=== PATIENT | female | born 1945 | race Caucasian/White ===

== ENCOUNTER → 2023-07-21 19:35 | Outpatient (REF) | payer MEDICARE, OTHER, SELFPAY | LOC: CLAB 19:35 | PROVIDERS: ATTENDING PHYSICIAN Obstetrics & Gynecology | DX: L90.0 Lichen sclerosus et atrophicus (principal) | CPT/HCPCS: 88305; 88312; 88341; 88342 ==

== ENCOUNTER → 2024-04-24 15:03 | Outpatient (REF) | payer MEDICARE, OTHER, SELFPAY | LOC: RAD 15:03 | PROVIDERS: ATTENDING PHYSICIAN Obstetrics & Gynecology; FAMILY PHYSICIAN Family Medicine | DX: M62.89 Other specified disorders of muscle (principal); R10.2 Pelvic and perineal pain | CPT/HCPCS: 76830; 76856 ==

== ENCOUNTER → 2024-05-24 15:11 | Outpatient (REF) | payer MEDICARE, OTHER, SELFPAY | LOC: CLAB 15:11 | PROVIDERS: ATTENDING PHYSICIAN Obstetrics & Gynecology | DX: R93.89 Abnormal findings on diagnostic imaging of other specified body structures (principal) | CPT/HCPCS: 88305 ==